=== PATIENT | male | born 1930 | race Caucasian/White ===

== ENCOUNTER 2020-04-23 12:33 | Inpatient (IN) ==
[2020-04-23] MEDS ORDERED: HYDROmorphone 2 MG/1 ML VIAL IV STA ×3 (13:19→16:21)
[2020-04-23] MEDS ORDERED: ONDANSETRON 4 MG/2 ML VIAL ONE (13:21)
[2020-04-23] MEDS ORDERED: ceFAZolin 1,000 MG in SYRINGE 1 EACH IV ONE (13:24)
[2020-04-23] MEDS ORDERED: ONDANSETRON 4 MG/2 ML VIAL IV STA (14:22)
[2020-04-23] MEDS ORDERED: ONDANSETRON 4 MG/2 ML VIAL IV PRN (14:41)
[2020-04-23] MEDS ORDERED: GLUCAGON 1 MG VIAL IM PRN (14:41)
[2020-04-23] MEDS ORDERED: DEXTROSE 50% 25 GM/50 ML VIAL IV PRN ×2 (14:41→15:29)
[2020-04-23] MEDS ORDERED: oxyCODONE IR 5 MG TABLET PO PRN (14:51)
[2020-04-23 15:00] LABS: Albumin 3.7 G/DL (3.4-5.0); Bilirubin,Total 0.4 MG/DL (0.2-1.0); Osmolality,Calculated 283.7 MOS/KG (273-304); Potassium 4.6 MMOL/L (3.5-5.1); Total Protein 7.6 G/DL (6.4-8.3)
[2020-04-23 15:10] LABS: PT Patient Result 10.8 SECS (9.8-11.9); Partial Thromboplastin Time 22.3 SECS (23.9-33.8)
[2020-04-23 15:19] LABS: Basophils % 0.3 % (0.0-0.8); Hematocrit 32.9 VOL% (42.0-52.0); Hemoglobin 10.6 GM/DL (14.0-18.0); Immature Granulocytes % 0.5 %; Immature Granulocytes Absolute 0.05 #; Lymphocytes # 0.6 10*3/uL (1.4-4.0); Lymphocytes % 5.2 % (21.2-54.2); Mean Corpuscular HGB Conc 32.2 GM/DL (32-36); Mean Corpuscular Volume 91.9 FL (87-102); Mean Platelet Volume 10.4 FL (9.6-12.0); Monocytes % 4.2 % (1.7-12.7); Neutrophils % 89.8 % (38.7-73.9); Platelet Count 250 T/CUMM (130-400); Red Blood Count 3.58 MC/CUMM (3.8-5.5); Red Cell Distribution Width 14.1 % (9.3-17.3)
[2020-04-23 15:26] LABS: Bilirubin,Urine Negative (Negative); Blood, Urine Negative (Negative); Glucose,Urine (UA) Negative (Negative); Ketones,Urine 5 mg/dL (Negative); Mucus,Urine Occasional /LPF (Occasional); Nitrite,Urine Negative (Negative); Protein,Urine Negative; RBC,Urine 1 /HPF (0-4); Urine Appearance CLEAR (Clear); Urine Color Yellow (Yellow); Urine Specific Gravity 1.018 (1.001-1.035); Urine Urobilinogen < 2.0 EU/DL (0.2-1.0); WBC,Urine <1 /HPF (0-6)
[2020-04-23] MEDS ORDERED: hydrALAZINE 20 MG/1 ML VIAL IV PRN (15:29)
[2020-04-23] MEDS ORDERED: ENOXAPARIN 40 MG/0.4 ML SYRINGE SUBCUT SCH (21:00)
[2020-04-24 05:32] LABS: Basophils % 0.5 % (0.0-0.8); Hematocrit 29.7 VOL% (42.0-52.0); Hemoglobin 9.7 GM/DL (14.0-18.0); Immature Granulocytes % 0.4 %; Immature Granulocytes Absolute 0.03 #; Lymphocytes # 0.9 10*3/uL (1.4-4.0); Mean Corpuscular HGB Conc 32.7 GM/DL (32-36); Mean Corpuscular Volume 91.7 FL (87-102); Mean Platelet Volume 10.6 FL (9.6-12.0); Monocytes % 9.7 % (1.7-12.7); Neutrophils % 78.4 % (38.7-73.9); Platelet Count 227 T/CUMM (130-400); Red Blood Count 3.24 MC/CUMM (3.8-5.5); Red Cell Distribution Width 14.2 % (9.3-17.3); White Blood Count 8.3 T/CUMM (4-12)
[2020-04-24 06:19] LABS: Calcium 8.6 MG/DL (8.5-10.1); Free T4 (Free Thyroxine) 0.94 NG/DL (0.76-1.46); Osmolality,Calculated 282.8 MOS/KG (273-304); Potassium 4.7 MMOL/L (3.5-5.1); Risk Ratio 3.56; Thyroid Stimulating Hormone 0.975 uIU/ml (0.358-3.74); VLDL CHOLESTEROL 19.8 MG/DL
[2020-04-24] MEDS ORDERED: BACITRACIN OINT 0.9 GM PACK TOP ONE (12:46)
[2020-04-24] MEDS ORDERED: fentaNYL 100 MCG/2 ML VIAL ONE (13:37)
[2020-04-24] MEDS ORDERED: DEXAMETHASONE 4 MG/1 ML VIAL ONE (13:45)
[2020-04-24] MEDS ORDERED: ROPIVACAINE 0.5% 30 ML VIAL ONE (13:45)
[2020-04-24] MEDS ORDERED: LIDOCAINE 1% 5 ML VIAL ONE (13:46)
[2020-04-24] MEDS ORDERED: ONDANSETRON 4 MG/2 ML VIAL ONE (13:53)
[2020-04-24] MEDS ORDERED: propofoL 200 MG/20 ML VIAL IV ONE (13:53)
[2020-04-24] MEDS ORDERED: ceFAZolin 1,000 MG VIAL ONE (14:55)
[2020-04-24] MEDS ORDERED: ACETAMINOPHEN 1,000 MG/100 ML VIAL IV ONE (15:38)
[2020-04-24] MEDS ORDERED: SEVOFLURANE 1 UNIT/15 MINUTE INH ONE (15:38)
[2020-04-24] MEDS: PANTOPRAZOLE 40 MG TABLET PO SCH (19:16)
[2020-04-24] MEDS: DOCUSATE SODIUM 100 MG CAPSULE PO SCH (21:33)
[2020-04-24] MEDS: ceFAZolin 1,000 MG in SYRINGE 1 EACH IV SCH (22:53)
[2020-04-25 06:06] LABS: Basophils % 0.2 % (0.0-0.8); Hemoglobin 7.9 GM/DL (14.0-18.0); Immature Granulocytes % 0.4 %; Immature Granulocytes Absolute 0.03 #; Lymphocytes # 0.8 10*3/uL (1.4-4.0); Lymphocytes % 9.7 % (21.2-54.2); Mean Corpuscular HGB Conc 32.9 GM/DL (32-36); Mean Corpuscular Volume 91.3 FL (87-102); Mean Platelet Volume 11.3 FL (9.6-12.0); Monocytes % 11.3 % (1.7-12.7); Neutrophils % 78.4 % (38.7-73.9); Platelet Count 181 T/CUMM (130-400); Red Blood Count 2.63 MC/CUMM (3.8-5.5); Red Cell Distribution Width 14.4 % (9.3-17.3); White Blood Count 8.5 T/CUMM (4-12)
[2020-04-25 06:21] LABS: Calcium 8.2 MG/DL (8.5-10.1); Osmolality,Calculated 287.4 MOS/KG (273-304); Potassium 4.2 MMOL/L (3.5-5.1)
[2020-04-25] MEDS ORDERED: SODIUM CHLORIDE 0.9% 1,000 ML IV PRN (08:14)
[2020-04-25] MEDS: ceFAZolin 1,000 MG in SYRINGE 1 EACH IV SCH (08:23)
[2020-04-25] MEDS: DEXTROSE 5% LACTATED RINGERS 1,000 ML IV SCH ×2 (08:23→11:15)
[2020-04-25] MEDS: DOCUSATE SODIUM 100 MG CAPSULE PO SCH ×2 (09:08→20:00)
[2020-04-25] MEDS: FONDAPARINUX 2.5 MG/0.5 ML SYRINGE SUBCUT SCH (09:08)
[2020-04-25] MEDS: PANTOPRAZOLE 40 MG TABLET PO SCH (09:08)
[2020-04-25 22:09] LABS: Hematocrit 32.3 VOL% (42.0-52.0); Hemoglobin 10.8 GM/DL (14.0-18.0)
[2020-04-26] MEDS: DEXTROSE 5% LACTATED RINGERS 1,000 ML IV SCH ×2 (02:15→09:31)
[2020-04-26 06:21] LABS: Basophils % 0.4 % (0.0-0.8); Hematocrit 32.7 VOL% (42.0-52.0); Hemoglobin 10.9 GM/DL (14.0-18.0); Immature Granulocytes % 0.6 %; Immature Granulocytes Absolute 0.05 #; Lymphocytes # 0.9 10*3/uL (1.4-4.0); Lymphocytes % 9.4 % (21.2-54.2); Mean Corpuscular HGB Conc 33.3 GM/DL (32-36); Mean Corpuscular Volume 88.4 FL (87-102); Mean Platelet Volume 10.7 FL (9.6-12.0); Monocytes % 10.5 % (1.7-12.7); Neutrophils % 79.1 % (38.7-73.9); Platelet Count 181 T/CUMM (130-400); Red Cell Distribution Width 14.6 % (9.3-17.3)
[2020-04-26 06:38] LABS: Calcium 8.4 MG/DL (8.5-10.1); Osmolality,Calculated 280.5 MOS/KG (273-304); Potassium 3.8 MMOL/L (3.5-5.1)
[2020-04-26] MEDS: MAGNESIUM HYDROXIDE SUSP 30 ML UDCUP PO PRN (09:47)
[2020-04-26] MEDS: DOCUSATE SODIUM 100 MG CAPSULE PO SCH ×2 (09:47→20:15)
[2020-04-26] MEDS: FONDAPARINUX 2.5 MG/0.5 ML SYRINGE SUBCUT SCH (09:47)
[2020-04-26] MEDS: PANTOPRAZOLE 40 MG TABLET PO SCH (09:47)
[2020-04-26] MEDS ORDERED: LORazepam 2 MG/1 ML VIAL IV ONE (14:09)
[2020-04-26 14:51] LABS: Bacteria,Urine Occasional /HPF (Few); Bilirubin,Urine Negative (Negative); Blood, Urine Large mg/dL (Negative); Glucose,Urine (UA) Negative (Negative); Ketones,Urine Negative (Negative); Mucus,Urine Occasional /LPF (Occasional); Nitrite,Urine Negative (Negative); Protein,Urine 100 MG/DL; RBC,Urine 34 /HPF (0-4); Urine Appearance CLEAR (Clear); Urine Color Yellow (Yellow); Urine Urobilinogen < 2.0 EU/DL (0.2-1.0); WBC,Urine 7 /HPF (0-6)
[2020-04-26] MEDS ORDERED: LORazepam 2 MG/1 ML VIAL IM ONE (23:39)
[2020-04-27] MEDS: MORPHINE 4 MG/1 ML VIAL IV PRN ×2 (00:58→22:59)
[2020-04-27 09:05] LABS: Basophils % 0.5 % (0.0-0.8); Eosinophils % 0.3 % (0.00-10.9); Hematocrit 33.9 VOL% (42.0-52.0); Hemoglobin 11.4 GM/DL (14.0-18.0); Immature Granulocytes % 0.3 %; Immature Granulocytes Absolute 0.02 #; Lymphocytes # 0.9 10*3/uL (1.4-4.0); Lymphocytes % 11.5 % (21.2-54.2); Mean Corpuscular HGB Conc 33.6 GM/DL (32-36); Mean Platelet Volume 11.1 FL (9.6-12.0); Monocytes % 11.4 % (1.7-12.7); Platelet Count 153 T/CUMM (130-400); Red Blood Count 3.81 MC/CUMM (3.8-5.5); Red Cell Distribution Width 14.6 % (9.3-17.3); White Blood Count 7.7 T/CUMM (4-12)
[2020-04-27] MEDS: DEXTROSE 5% LACTATED RINGERS 1,000 ML IV SCH (09:21)
[2020-04-27] MEDS: MAGNESIUM HYDROXIDE SUSP 30 ML UDCUP PO PRN ×2 (09:24→20:18)
[2020-04-27] MEDS: FONDAPARINUX 2.5 MG/0.5 ML SYRINGE SUBCUT SCH (09:24)
[2020-04-27] MEDS: DOCUSATE SODIUM 100 MG CAPSULE PO SCH ×2 (09:24→20:18)
[2020-04-27] MEDS: PANTOPRAZOLE 40 MG TABLET PO SCH (09:24)
[2020-04-27 09:32] LABS: Calcium 8.2 MG/DL (8.5-10.1); Osmolality,Calculated 278.5 MOS/KG (273-304); Potassium 3.7 MMOL/L (3.5-5.1)
[2020-04-27] MEDS: QUEtiapine 25 MG TABLET PO SCH (20:18)
[2020-04-28 04:19] LABS: Basophils % 0.5 % (0.0-0.8); Eosinophils # 0.1 10*3/uL (0.0-0.87); Eosinophils % 1.7 % (0.00-10.9); Hematocrit 29.1 VOL% (42.0-52.0); Hemoglobin 9.2 GM/DL (14.0-18.0); Immature Granulocytes % 0.3 %; Immature Granulocytes Absolute 0.02 #; Lymphocytes # 0.9 10*3/uL (1.4-4.0); Lymphocytes % 13.8 % (21.2-54.2); Mean Corpuscular HGB Conc 31.6 GM/DL (32-36); Mean Corpuscular Volume 92.4 FL (87-102); Mean Platelet Volume 10.7 FL (9.6-12.0); Monocytes % 9.8 % (1.7-12.7); Neutrophils % 73.9 % (38.7-73.9); Platelet Count 201 T/CUMM (130-400); Red Blood Count 3.15 MC/CUMM (3.8-5.5); Red Cell Distribution Width 14.6 % (9.3-17.3); White Blood Count 6.4 T/CUMM (4-12)
[2020-04-28] MEDS: DEXTROSE 5% LACTATED RINGERS 1,000 ML IV SCH ×2 (04:49→23:46)
[2020-04-28 09:32] LABS: Basophils % 0.6 % (0.0-0.8); Eosinophils # 0.1 10*3/uL (0.0-0.87); Eosinophils % 1.7 % (0.00-10.9); Hematocrit 36.1 VOL% (42.0-52.0); Immature Granulocytes % 0.2 %; Immature Granulocytes Absolute 0.01 #; Lymphocytes # 0.9 10*3/uL (1.4-4.0); Lymphocytes % 14.6 % (21.2-54.2); Mean Corpuscular HGB Conc 31.6 GM/DL (32-36); Mean Corpuscular Volume 94.3 FL (87-102); Mean Platelet Volume 11.6 FL (9.6-12.0); Monocytes % 9.7 % (1.7-12.7); Neutrophils % 73.2 % (38.7-73.9); Red Cell Distribution Width 14.6 % (9.3-17.3); White Blood Count 6.3 T/CUMM (4-12)
[2020-04-28 09:34] LABS: Hemoglobin 11.4 GM/DL (14.0-18.0); Red Blood Count 3.83 MC/CUMM (3.8-5.5)
[2020-04-28 09:35] LABS: Platelet Count 159 T/CUMM (130-400)
[2020-04-28 09:41] LABS: Platelet Estimate Normal
[2020-04-28 09:42] LABS: Anisocytosis 1+
[2020-04-28] MEDS: PANTOPRAZOLE 40 MG TABLET PO SCH (10:42)
[2020-04-28] MEDS: DOCUSATE SODIUM 100 MG CAPSULE PO SCH ×2 (10:42→20:47)
[2020-04-28] MEDS: FONDAPARINUX 2.5 MG/0.5 ML SYRINGE SUBCUT SCH (10:42)
[2020-04-28] MEDS: MAGNESIUM HYDROXIDE SUSP 30 ML UDCUP PO PRN (16:25)
[2020-04-28] MEDS: QUEtiapine 25 MG TABLET PO SCH (20:48)
[2020-04-28] MEDS: ACETAMINOPHEN 325 MG TABLET PO PRN (20:51)
[2020-04-29] MEDS: DOCUSATE SODIUM 100 MG CAPSULE PO SCH ×2 (09:32→20:51)
[2020-04-29] MEDS: PANTOPRAZOLE 40 MG TABLET PO SCH (09:32)
[2020-04-29] MEDS: FONDAPARINUX 2.5 MG/0.5 ML SYRINGE SUBCUT SCH (09:32)
[2020-04-29] MEDS: MAGNESIUM HYDROXIDE SUSP 30 ML UDCUP PO PRN ×2 (09:32→20:50)
[2020-04-29] MEDS: DEXTROSE 5% LACTATED RINGERS 1,000 ML IV SCH (19:16)
[2020-04-29] MEDS: QUEtiapine 25 MG TABLET PO SCH (20:51)
[2020-04-29] MEDS: ACETAMINOPHEN 325 MG TABLET PO PRN (23:53)
[2020-04-30 07:04] LABS: Basophils % 0.5 % (0.0-0.8); Eosinophils # 0.2 10*3/uL (0.0-0.87); Eosinophils % 3.5 % (0.00-10.9); Hematocrit 28.7 VOL% (42.0-52.0); Hemoglobin 9.1 GM/DL (14.0-18.0); Immature Granulocytes % 0.4 %; Immature Granulocytes Absolute 0.02 #; Lymphocytes # 1.1 10*3/uL (1.4-4.0); Lymphocytes % 19.6 % (21.2-54.2); Mean Corpuscular HGB Conc 31.7 GM/DL (32-36); Mean Corpuscular Volume 92.6 FL (87-102); Mean Platelet Volume 11.2 FL (9.6-12.0); Monocytes % 11.5 % (1.7-12.7); Neutrophils % 64.5 % (38.7-73.9); Platelet Count 244 T/CUMM (130-400); Red Cell Distribution Width 14.4 % (9.3-17.3); White Blood Count 5.7 T/CUMM (4-12)
[2020-04-30 07:27] LABS: Calcium 8.1 MG/DL (8.5-10.1); Osmolality,Calculated 284.3 MOS/KG (273-304)
[2020-04-30] MEDS: DOCUSATE SODIUM 100 MG CAPSULE PO SCH (08:57)
[2020-04-30] MEDS: FONDAPARINUX 2.5 MG/0.5 ML SYRINGE SUBCUT SCH (08:57)
[2020-04-30] MEDS: PANTOPRAZOLE 40 MG TABLET PO SCH (08:57)
[2020-04-30] MEDS ORDERED: TUBERCULIN SKIN TEST 0.1 ML SYRINGE INTRADERM ONE (10:13)
[2020-04-30 11:50] VITALS: BP 128/51
== END 2020-04-30 13:22 | disposition swing bed (61) | DRG 481 ==
LOC: EDBD → EDUNIT# → N.ED 12:33 → N.3E 17:49
PROVIDERS: ADMIT Internal Medicine; ATTEND Internal Medicine

== ENCOUNTER 2021-02-10 13:30 | Inpatient (IN) ==
[2021-02-10] MEDS ORDERED: SODIUM CHLORIDE 0.9% 1,000 ML IV STA (13:34)
[2021-02-10] MEDS ORDERED: DIPH/TET/ACEL PERT BOOSTER VACCINE 0.5 ML VIAL IM ONE (13:48)
[2021-02-10 14:42] LABS: Basophils % 0.1 % (0.0-0.8); Hematocrit 37.8 VOL% (42.0-52.0); Hemoglobin 12.1 GM/DL (14.0-18.0); Immature Granulocytes % 0.6 %; Lymphocytes # 0.7 10*3/uL (1.4-4.0); Lymphocytes % 4.2 % (21.2-54.2); Mean Corpuscular Volume 89.8 FL (87-102); Mean Platelet Volume 10.3 FL (9.6-12.0); Monocytes % 9.4 % (1.7-12.7); Neutrophils % 85.7 % (38.7-73.9); Platelet Count 339 T/CUMM (130-400); Red Blood Count 4.21 MC/CUMM (3.8-5.5); Red Cell Distribution Width 14.7 % (9.3-17.3); White Blood Count 17.4 T/CUMM (4-12)
[2021-02-10 14:51] LABS: INR 1.1; PT Patient Result 12.5 SECS (10.5-12.0); Partial Thromboplastin Time 23.4 SECS (23.8-32.1)
[2021-02-10 14:52] LABS: Alanine Aminotransferase 127 U/L (16-61); Albumin 3.6 G/DL (3.4-5.0); Alkaline Phosphatase 140 U/L (45-117); Aspartate Amino Transferase 490 U/L (0-37); Blood Urea Nitrogen 79 MG/DL (7-18); Calcium 9.6 MG/DL (8.5-10.1); Carbon Dioxide 18 MMOL/L (21-32); Estimated Glom Filtration Rate 30 ML/MIN; Glucose 105 MG/DL (74-106); Osmolality,Calculated 306.1 MOS/KG (273-304); Potassium 4.9 MMOL/L (3.5-5.1); Sodium 142 MMOL/L (136-145)
[2021-02-10 15:30] LABS: Lymphocytes 5 % (20-55); Segmented Neutrophils 86 % (50-85); Total Cells Counted 100
[2021-02-10 15:31] LABS: Bacteria,Urine Occasional /HPF (Few); Bilirubin,Urine Negative (Negative); Blood, Urine Large mg/dL (Negative); Glucose,Urine (UA) Negative (Negative); Hyaline Casts,Urine 10 /LPF (0-3); Ketones,Urine 20 mg/dL (Negative); Mucus,Urine Occasional /LPF (Occasional); Nitrite,Urine Negative (Negative); Protein,Urine 30 MG/DL; RBC,Urine 1 /HPF (0-4); Squamous Epithelial Cell,Urine Occasional /HPF (0-10); Urine Appearance Slightly Hazy (Clear); Urine Color Yellow (Yellow); Urine Specific Gravity 1.019 (1.001-1.035); Urine Urobilinogen < 2.0 EU/DL (0.2-1.0)
[2021-02-10 15:31] LABS: Hypochromasia Slight; Platelet Estimate Normal; Reactive Lymphocytes Slight
[2021-02-10] MEDS ORDERED: ONDANSETRON 4 MG/2 ML VIAL IV PRN (15:35)
[2021-02-10] MEDS: ENOXAPARIN 30 MG/0.3 ML SYRINGE SUBCUT SCH (19:00)
[2021-02-10] MEDS: SODIUM CHLORIDE 0.9% 1,000 ML IV SCH (19:00)
[2021-02-11] MEDS ORDERED: QUEtiapine 25 MG TABLET PO ONE (02:00)
[2021-02-11] MEDS: SODIUM CHLORIDE 0.9% 1,000 ML IV SCH ×2 (05:34→12:49)
[2021-02-11 08:12] LABS: Basophils % 0.1 % (0.0-0.8); Hematocrit 29.4 VOL% (42.0-52.0); Immature Granulocytes % 0.3 %; Immature Granulocytes Absolute 0.03 #; Lymphocytes % 10.5 % (21.2-54.2); Mean Corpuscular HGB Conc 32.7 GM/DL (32-36); Mean Corpuscular Volume 88.6 FL (87-102); Mean Platelet Volume 10.2 FL (9.6-12.0); Monocytes % 9.2 % (1.7-12.7); Neutrophils % 79.9 % (38.7-73.9); Red Cell Distribution Width 14.7 % (9.3-17.3)
[2021-02-11 08:18] LABS: Hemoglobin 9.6 GM/DL (14.0-18.0); Platelet Count 264 T/CUMM (130-400); Red Blood Count 3.32 MC/CUMM (3.8-5.5); White Blood Count 9.6 T/CUMM (4-12)
[2021-02-11 08:37] LABS: Albumin 2.7 G/DL (3.4-5.0); Bilirubin,Total 1.4 MG/DL (0.20-1.00); Calcium 8.5 MG/DL (8.5-10.1); Potassium 3.8 MMOL/L (3.5-5.1); Total Protein 6.2 G/DL (6.4-8.2)
[2021-02-11] MEDS: FINASTERIDE 5 MG TABLET PO SCH (09:45)
[2021-02-11] MEDS: PANTOPRAZOLE 40 MG TABLET PO SCH (09:45)
[2021-02-11] MEDS: ENOXAPARIN 30 MG/0.3 ML SYRINGE SUBCUT SCH (17:11)
[2021-02-11] MEDS: SODIUM CHLORIDE 0.45% 1,000 ML IV SCH (17:12)
[2021-02-11] MEDS: QUEtiapine 25 MG TABLET PO SCH (20:16)
[2021-02-12] MEDS: SODIUM CHLORIDE 0.45% 1,000 ML IV SCH ×2 (01:28→09:18)
[2021-02-12 06:05] LABS: Basophils % 0.4 % (0.0-0.8); Eosinophils % 0.3 % (0.00-10.9); Hematocrit 31.7 VOL% (42.0-52.0); Hemoglobin 9.9 GM/DL (14.0-18.0); Immature Granulocytes % 0.5 %; Immature Granulocytes Absolute 0.04 #; Lymphocytes % 13.9 % (21.2-54.2); Mean Corpuscular HGB Conc 31.2 GM/DL (32-36); Neutrophils % 73.9 % (38.7-73.9); Platelet Count 236 T/CUMM (130-400); Red Blood Count 3.41 MC/CUMM (3.8-5.5); Red Cell Distribution Width 15.2 % (9.3-17.3); White Blood Count 7.4 T/CUMM (4-12)
[2021-02-12] MEDS ORDERED: VANCOMYCIN INJ 750 MG in SODIUM CHLORIDE 0.9% 250 ML IV ONE (06:35)
[2021-02-12 06:49] LABS: Albumin 2.4 G/DL (3.4-5.0); Bilirubin,Total 0.5 MG/DL (0.20-1.00); CKMB % 0.7 %; Calcium 8.3 MG/DL (8.5-10.1); Osmolality,Calculated 297.8 MOS/KG (273-304); Total Protein 5.9 G/DL (6.4-8.2)
[2021-02-12] MEDS: MULTIVITAMIN (CENTRUM) TABLET PO SCH (08:59)
[2021-02-12] MEDS: PANTOPRAZOLE 40 MG TABLET PO SCH (08:59)
[2021-02-12] MEDS: FINASTERIDE 5 MG TABLET PO SCH (08:59)
[2021-02-12] MEDS: DEXTROSE 5% 1,000 ML IV SCH (17:15)
[2021-02-12] MEDS: ENOXAPARIN 30 MG/0.3 ML SYRINGE SUBCUT SCH (17:15)
[2021-02-12] MEDS: QUEtiapine 25 MG TABLET PO SCH (20:14)
[2021-02-13] MEDS: DEXTROSE 5% 1,000 ML IV SCH (03:00)
[2021-02-13] MEDS ORDERED: ONDANSETRON 4 MG/2 ML VIAL ONE (08:25)
[2021-02-13] MEDS ORDERED: DEXMEDETOMIDINE 200 MCG/2 ML VIAL ONE (08:25)
[2021-02-13] MEDS ORDERED: MIDAZOLAM 2 MG/2 ML VIAL ONE (08:26)
[2021-02-13] MEDS ORDERED: TRANEXAMIC ACID 1,000 MG/10 ML VIAL ONE (08:26)
[2021-02-13] MEDS ORDERED: BUPIVACAINE SPINAL 0.75% 2 ML AMP SPINAL ONE (08:38)
[2021-02-13 08:41] LABS: Calcium 8.6 MG/DL (8.5-10.1); Osmolality,Calculated 291.1 MOS/KG (273-304); Potassium 3.8 MMOL/L (3.5-5.1)
[2021-02-13] MEDS ORDERED: BUPIVACAINE MPF 0.25% 30 ML VIAL ONE (08:46)
[2021-02-13] MEDS ORDERED: LIDOCAINE 1% 5 ML VIAL ONE (08:46)
[2021-02-13] MEDS ORDERED: BACITRACIN OINT 0.9 GM PACK TOP ONE (08:46)
[2021-02-13] MEDS ORDERED: DEXAMETHASONE 4 MG/1 ML VIAL ONE (08:46)
[2021-02-13] MEDS ORDERED: ROPIVACAINE 0.5% 30 ML VIAL ONE (08:48)
[2021-02-13] MEDS ORDERED: KETAMINE 500 MG/10 ML VIAL ONE (09:21)
[2021-02-13] MEDS: MULTIVITAMIN (CENTRUM) TABLET PO SCH (09:42)
[2021-02-13] MEDS: FINASTERIDE 5 MG TABLET PO SCH (09:42)
[2021-02-13] MEDS: PANTOPRAZOLE 40 MG TABLET PO SCH (09:43)
[2021-02-13] MEDS ORDERED: PHENYLEPHRINE 1 MG/10 ML SYRINGE IV ONE ×2 (10:41)
[2021-02-13] MEDS ORDERED: ROCURONIUM 50 MG/5 ML VIAL IV ONE (10:41)
[2021-02-13] MEDS ORDERED: ETOMIDATE 40 MG/20 ML VIAL IV ONE (10:41)
[2021-02-13] MEDS ORDERED: SEVOFLURANE 1 UNIT/15 MINUTE INH ONE ×11 (10:41→12:17)
[2021-02-13] MEDS ORDERED: LACTATED RINGERS 1,000 ML IV ONE ×2 (10:41→11:23)
[2021-02-13] MEDS ORDERED: GLYCOPYRROLATE 0.4 MG/2 ML VIAL ONE (10:41)
[2021-02-13] MEDS ORDERED: PHENYLEPHRINE 10 MG/1 ML VIAL IV ONE (11:25)
[2021-02-13] MEDS ORDERED: hydrALAZINE 20 MG/1 ML VIAL IV PRN (11:32)
[2021-02-13] MEDS ORDERED: MAGNESIUM HYDROXIDE SUSP 30 ML UDCUP PO PRN (12:17)
[2021-02-13] MEDS ORDERED: MORPHINE 2 MG/1 ML SYRINGE IV PRN ×2 (12:17)
[2021-02-13] MEDS: POTASSIUM CHLORIDE INJ 30 MEQ in DEXTROSE 5% 1,000 ML IV SCH (14:23)
[2021-02-13] MEDS: QUEtiapine 25 MG TABLET PO SCH (21:21)
[2021-02-13] MEDS: DOCUSATE SODIUM 100 MG CAPSULE PO SCH (21:21)
[2021-02-14] MEDS: POTASSIUM CHLORIDE INJ 30 MEQ in DEXTROSE 5% 1,000 ML IV SCH ×2 (00:59→13:00)
[2021-02-14 07:21] LABS: Basophils % 0.1 % (0.0-0.8); Hematocrit 26.6 VOL% (42.0-52.0); Hemoglobin 8.4 GM/DL (14.0-18.0); Immature Granulocytes Absolute 0.09 #; Lymphocytes # 1.1 10*3/uL (1.4-4.0); Lymphocytes % 12.4 % (21.2-54.2); Mean Corpuscular HGB Conc 31.6 GM/DL (32-36); Mean Corpuscular Volume 92.4 FL (87-102); Mean Platelet Volume 10.9 FL (9.6-12.0); Monocytes % 10.5 % (1.7-12.7); Platelet Count 190 T/CUMM (130-400); Red Blood Count 2.88 MC/CUMM (3.8-5.5); Red Cell Distribution Width 15.1 % (9.3-17.3); White Blood Count 9.1 T/CUMM (4-12)
[2021-02-14 07:59] LABS: Calcium 8.3 MG/DL (8.5-10.1); Osmolality,Calculated 283.5 MOS/KG (273-304); Potassium 4.3 MMOL/L (3.5-5.1)
[2021-02-14] MEDS: MULTIVITAMIN (CENTRUM) TABLET PO SCH (09:16)
[2021-02-14] MEDS: lisinopriL 5 MG TABLET PO SCH (09:16)
[2021-02-14] MEDS: APIXABAN 2.5 MG TABLET PO SCH ×2 (09:16→21:03)
[2021-02-14] MEDS: DOCUSATE SODIUM 100 MG CAPSULE PO SCH ×2 (09:16→21:03)
[2021-02-14] MEDS: FINASTERIDE 5 MG TABLET PO SCH (09:16)
[2021-02-14] MEDS: PANTOPRAZOLE 40 MG TABLET PO SCH (09:16)
[2021-02-14] MEDS: DEXTROSE 5% 1,000 ML IV SCH (16:25)
[2021-02-14] MEDS: QUEtiapine 25 MG TABLET PO SCH (21:03)
[2021-02-15 13:19] LABS: Basophils % 0.1 % (0.0-0.8); Eosinophils # 0.1 10*3/uL (0.0-0.87); Eosinophils % 1.4 % (0.00-10.9); Hematocrit 24.6 VOL% (42.0-52.0); Immature Granulocytes Absolute 0.16 #; Lymphocytes # 1.4 10*3/uL (1.4-4.0); Lymphocytes % 17.2 % (21.2-54.2); Mean Corpuscular HGB Conc 32.5 GM/DL (32-36); Mean Corpuscular Volume 90.8 FL (87-102); Mean Platelet Volume 11.3 FL (9.6-12.0); Neutrophils % 67.3 % (38.7-73.9); Platelet Count 199 T/CUMM (130-400); Red Blood Count 2.71 MC/CUMM (3.8-5.5); Red Cell Distribution Width 15.4 % (9.3-17.3); White Blood Count 7.9 T/CUMM (4-12)
[2021-02-15] MEDS: APIXABAN 2.5 MG TABLET PO SCH ×2 (13:43→21:23)
[2021-02-15] MEDS: DEXTROSE 5% 1,000 ML IV SCH ×2 (13:43→21:23)
[2021-02-15] MEDS: DOCUSATE SODIUM 100 MG CAPSULE PO SCH ×2 (13:43→21:23)
[2021-02-15] MEDS: MULTIVITAMIN (CENTRUM) TABLET PO SCH (13:43)
[2021-02-15] MEDS: FINASTERIDE 5 MG TABLET PO SCH (13:44)
[2021-02-15] MEDS: PANTOPRAZOLE 40 MG TABLET PO SCH (13:44)
[2021-02-15] MEDS: lisinopriL 5 MG TABLET PO SCH (13:44)
[2021-02-15] MEDS: cefTRIAXone 2,000 MG in SODIUM CHLORIDE 0.9% 100 ML IV SCH (15:09)
[2021-02-15] MEDS: VANCOMYCIN INJ 1,000 MG in SODIUM CHLORIDE 0.9% 250 ML IV SCH (17:12)
[2021-02-15 18:34] LABS: Bilirubin,Urine Negative (Negative); Blood, Urine Small mg/dL (Negative); Glucose,Urine (UA) Negative (Negative); Ketones,Urine Negative (Negative); Nitrite,Urine Negative (Negative); Protein,Urine Negative; RBC,Urine 4 /HPF (0-4); Urine Appearance CLEAR (Clear); Urine Color Yellow (Yellow); Urine Specific Gravity 1.006 (1.001-1.035); Urine Urobilinogen < 2.0 EU/DL (0.2-1.0)
[2021-02-15] MEDS: QUEtiapine 25 MG TABLET PO SCH (21:22)
[2021-02-16 05:16] LABS: Basophils % 0.5 % (0.0-0.8); Eosinophils # 0.2 10*3/uL (0.0-0.87); Eosinophils % 2.8 % (0.00-10.9); Hematocrit 24.6 VOL% (42.0-52.0); Hemoglobin 7.7 GM/DL (14.0-18.0); Immature Granulocytes % 3.5 %; Immature Granulocytes Absolute 0.29 #; Lymphocytes # 1.5 10*3/uL (1.4-4.0); Lymphocytes % 18.5 % (21.2-54.2); Mean Corpuscular HGB Conc 31.3 GM/DL (32-36); Mean Corpuscular Volume 93.2 FL (87-102); Mean Platelet Volume 11.1 FL (9.6-12.0); Monocytes % 11.1 % (1.7-12.7); Neutrophils % 63.6 % (38.7-73.9); Platelet Count 204 T/CUMM (130-400); Red Blood Count 2.64 MC/CUMM (3.8-5.5); Red Cell Distribution Width 15.3 % (9.3-17.3); White Blood Count 8.2 T/CUMM (4-12)
[2021-02-16 05:48] LABS: Calcium 7.8 MG/DL (8.5-10.1); Osmolality,Calculated 286.1 MOS/KG (273-304); Potassium 3.7 MMOL/L (3.5-5.1)
[2021-02-16] MEDS: VANCOMYCIN INJ 1,000 MG in SODIUM CHLORIDE 0.9% 250 ML IV SCH ×2 (05:58→17:17)
[2021-02-16] MEDS: PANTOPRAZOLE 40 MG TABLET PO SCH (09:35)
[2021-02-16] MEDS: APIXABAN 2.5 MG TABLET PO SCH ×2 (09:35→20:54)
[2021-02-16] MEDS: lisinopriL 5 MG TABLET PO SCH (09:35)
[2021-02-16] MEDS: MULTIVITAMIN (CENTRUM) TABLET PO SCH (09:37)
[2021-02-16] MEDS: FINASTERIDE 5 MG TABLET PO SCH (09:37)
[2021-02-16] MEDS: DOCUSATE SODIUM 100 MG CAPSULE PO SCH ×2 (09:37→20:54)
[2021-02-16] MEDS: DEXTROSE 5% 1,000 ML IV SCH (10:43)
[2021-02-16] MEDS: cefTRIAXone 2,000 MG in SODIUM CHLORIDE 0.9% 100 ML IV SCH (15:33)
[2021-02-16] MEDS ORDERED: TUBERCULIN SKIN TEST 0.1 ML SYRINGE INTRADERM ONE (16:13)
[2021-02-16] MEDS: QUEtiapine 25 MG TABLET PO SCH (20:54)
[2021-02-17] MEDS: VANCOMYCIN INJ 1,000 MG in SODIUM CHLORIDE 0.9% 250 ML IV SCH (05:37)
[2021-02-17 05:57] LABS: Basophils % 0.3 % (0.0-0.8); Eosinophils # 0.3 10*3/uL (0.0-0.87); Eosinophils % 3.9 % (0.00-10.9); Hematocrit 24.8 VOL% (42.0-52.0); Hemoglobin 7.8 GM/DL (14.0-18.0); Immature Granulocytes % 2.5 %; Lymphocytes # 1.5 10*3/uL (1.4-4.0); Lymphocytes % 19.5 % (21.2-54.2); Mean Corpuscular HGB Conc 31.5 GM/DL (32-36); Mean Corpuscular Volume 92.2 FL (87-102); Mean Platelet Volume 10.9 FL (9.6-12.0); Monocytes % 9.4 % (1.7-12.7); Neutrophils % 64.4 % (38.7-73.9); Platelet Count 253 T/CUMM (130-400); Red Blood Count 2.69 MC/CUMM (3.8-5.5); Red Cell Distribution Width 15.2 % (9.3-17.3); White Blood Count 7.9 T/CUMM (4-12)
[2021-02-17 06:24] LABS: Bilirubin,Total 0.6 MG/DL (0.20-1.00); Osmolality,Calculated 281.5 MOS/KG (273-304); Potassium 3.7 MMOL/L (3.5-5.1); Total Protein 5.7 G/DL (6.4-8.2)
[2021-02-17 08:24] VITALS: BP 114/47
[2021-02-17] MEDS: MULTIVITAMIN (CENTRUM) TABLET PO SCH (09:23)
[2021-02-17] MEDS: FINASTERIDE 5 MG TABLET PO SCH (09:23)
[2021-02-17] MEDS: lisinopriL 5 MG TABLET PO SCH (09:23)
[2021-02-17] MEDS: APIXABAN 2.5 MG TABLET PO SCH (09:23)
[2021-02-17] MEDS: PANTOPRAZOLE 40 MG TABLET PO SCH (09:23)
[2021-02-17] MEDS: DOCUSATE SODIUM 100 MG CAPSULE PO SCH (09:23)
== END 2021-02-17 11:20 | disposition swing bed (61) | DRG 981 ==
LOC: EDUNIT# → EDBD → N.ED 13:30 → N.EDINP 13:30 → SUATTDRO 15:35 → N.TELEN 20:08 → SUATTDRO 02-12 09:17
PROVIDERS: ADMIT Internal Medicine; ATTEND Internal Medicine